=== PATIENT | male | born 1940 | race Caucasian/White ===

== ENCOUNTER 2017-08-13 18:45 | Emergency (ER) | payer OTHER ==
[~2017-08-13] VITALS: Ht 180.3 cm; Wt 80.0 kg
[2017-08-13 18:50] VITALS: BP 137/91
[2017-08-13] MEDS ORDERED: LIDOCAINE HCL/EPINEPHRINE 1%-EPI 1:100,000 20 ML VIAL INFIL ONE (19:15)
[2017-08-13] MEDS ORDERED: TETANUS, DIPHTHERIA, PERTUSSIS VAC/PF 0.5ML (>7YR OLD) IM ONE (20:30)
[2017-08-13] MEDS ORDERED: BACITRACIN ZINC OINT UDPKT TOP ONE (20:30)
== END 2017-08-13 21:27 | disposition home or self-care (01) ==
LOC: ER 20:20
DX: S01.412A Laceration without foreign body of left cheek and temporomandibular area, initial encounter (principal); F17.200 Nicotine dependence, unspecified, uncomplicated; W22.8XXA Striking against or struck by other objects, initial encounter; Y93.89 Activity, other specified; Y92.513 Shop (commercial) as the place of occurrence of the external cause; Y99.8 Other external cause status
CPT/HCPCS: 12001; 99283; J3490